=== PATIENT | male | born 1980 | race Caucasian/White ===

== ENCOUNTER 2024-09-15 14:58 | Inpatient (IN) ==
[2024-09-15 15:44] LABS: Hematocrit (blood only) 42.5 % (42.0-52.0); Hemoglobin 15.8 g/dl (14.0-18.0); Immature Granulocytes # (auto) 0.01 K/uL (0.01-0.20); Immature Granulocytes % (auto) 0.2 %; Mean Corpuscular Hemoglobin 33.3 pg (25.0-34.0); Mean Corpuscular Volume 89.5 fL (80.0-100.0); Platelet Count 202 K/uL (130-400); RDW Standard Deviation 38.9 fL (36.4-46.3); Red Blood Count 4.75 M/uL (4.70-6.10); White Blood Count 5.11 K/ul (4.8-10.8)
[2024-09-15 15:53] LABS: Appearance Urine Clear (Clear); Bacteria Urine Automated None Seen (None Seen); Cast Urine Automated 0-2 /lpf (0-2); Epithelial Cell Urine Auto 0-2 /hpf (0-2); Glucose Urine UA Negative (Negative); RBC Urine Automated 0-2 /hpf (0-2); WBC Urine Automated 0-5 /hpf (0-5)
[2024-09-15 16:01] LABS: Alanine Aminotransferase 10.0 U/L (7-52); Albumin Globulin Ratio 2.0 (0.9-2); Alkaline Phosphatase 56.0 U/L (34-104); Anion Gap 6.0 (3-11); Bilirubin,Total 0.5 mg/dl (0.2-1.0); Blood Urea Nitrogen 12.0 mg/dl (6-23); Calcium 8.9 mg/dl (8.6-10.3); Carbon Dioxide 27.0 mmol/L (21-32); Chloride 106.0 mmol/L (98-107); Creatinine Clr Calc Pharmacy 103.9 ml/min; Globulin 2.3 gm/dl (2.5-4.0); Glucose 92.0 mg/dl (70-99(Fasting)); Potassium 4.3 mmol/L (3.5-5.1); Sodium 139.0 mmol/L (136-145); Total Protein 6.8 gm/dl (6.0-8.3)
[2024-09-15 16:15] LABS: Thyroid Stimulating Hormone 0.351 uIu/ml (0.300-4.500)
[2024-09-15 16:24] LABS: Acetaminophen < 3 ug/ml (10-30); Amphetamines+Metham, Urine Neg (Neg); MDMA (Ecstacy), Urine Neg (Neg); Marijuana, Urine Pos (Neg); Salicylate < 3.0 mg/dl (3.0-30)
[2024-09-15] MEDS ORDERED: ACETAMINOPHEN 325 MG TAB PO PRN (17:45)
[2024-09-15] MEDS ORDERED: SODIUM CHLORIDE 0.65% NA SOLN 45 ML (OCEAN) PRN (17:45)
[2024-09-15] MEDS ORDERED: ALUMINUM/MAGNESIUM SUSP 30 ML UDC PO PRN (17:45)
[2024-09-15] MEDS ORDERED: BISMUTH SUBSALICYLATE 262 MG CHEW PO PRN (17:45)
[2024-09-15] MEDS ORDERED: MAGNESIUM HYDROXIDE SUSP 30 ML UDC PO PRN (17:45)
[2024-09-15] MEDS ORDERED: NICOTINE POLACRILEX 2 MG GUM MT PRN (18:30)
[2024-09-15] MEDS: MIRTAZAPINE TAB 15 MG TAB PO SCH (20:28)
[2024-09-15] MEDS: lamoTRIgine 100 MG TAB PO SCH (20:28)
[2024-09-15] MEDS: MEMANTINE HCL 10 MG TAB PO SCH (20:28)
[2024-09-15] MEDS: BENZTROPINE MESYLATE 1 MG TAB PO SCH (20:29)
--- NOTE | 2024-09-15 20:39 | Emergency Department Note ---
History of Present Illness General Chief complaint: Mental Health Evaluation Stated complaint: CRISIS EVAL, SUICIDAL THREATS Time Seen by Provider: 09/15/24 15:54 History of Present Illness Provider complaint: Mental health evaluation 43-year-old male with history of intellectual disability presents to the emergency department for mental health evaluation. Patient is here with his family who reports that the patient is becoming increasingly angry and having aggressive outbursts after his medications were changed by psychiatric team. Reportedly today the patient got very angry and started punching and kicking monsivais and started stating that he hopes he would planning to jump in front of a car to hit him. Home Medications Medication Instructions Recorded Confirmed Type aripiprazole 20 mg tablet 20 mg PO HS 09/15/24 09/15/24 History atomoxetine 100 mg capsule 100 mg PO DAILY 09/15/24 09/15/24 History benztropine 1 mg tablet 1 mg BID 09/15/24 09/15/24 History buspirone 7.5 mg tablet 7.5 mg PO BID 09/15/24 09/15/24 History clonazepam 0.5 mg tablet (Klonopin) 0.5 mg PO BID 09/15/24 09/15/24 History guanfacine 2 mg tablet 2 mg PO BID 09/15/24 09/15/24 History icosapent ethyl 1 gram capsule 1 g PO BID 09/15/24 09/15/24 History (Vascepa) lamotrigine 100 mg tablet 100 mg PO DAILY 09/15/24 09/15/24 History lamotrigine 200 mg tablet 200 mg PO BID 09/15/24 09/15/24 History memantine 10 mg tablet 10 mg PO BID 09/15/24 09/15/24 History mirtazapine 30 mg tablet 45 mg PO HS 09/15/24 09/15/24 History pantoprazole 40 mg tablet,delayed 40 mg PO DAILY 09/15/24 09/15/24 History release Allergies Allergy/AdvReac Type Severity Reaction Status Date / Time risperidone [From Risperdal] AdvReac Unknown Verified 09/15/24 18:49 Past Med/Surg History Problem List (Updated 09/15/24 @ 20:39 by Joaquim Cannon MD) Suicidal ideation (Acute) Social History Smoking Status: Current every day smoker Preferred Language: Estonian Communication Ability: Effective 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 Beliefs That Will Affect Care: None Feels Safe at Home: Yes Gender Identity: Male Assistive Devices: Glasses Physical Exam Vital Signs Vital Signs - 24 hr 09/15/24 15:04 Temperature 37.1 C Temperature Source Temporal Artery Scan Pulse Rate 100 H Respiratory Rate 19 Respiratory Effort / Characteristics Non-Labored Spontaneous Respiratory Depth Normal Blood Pressure 132/72 Blood Pressure Mean 92 Pulse Oximetry 96 Oxygen Delivery Method Room Air Sepsis Recent Fever Within 48 Hours No Sepsis New/Unexplained Change in Mental Status No Sepsis Action Taken by Nursing No Action Required Physical Exam CV: Normal rate, regular rhythm, normal heart sounds and intact distal pulses. There is no peripheral edema. Palpable radial pulses bue. PULM/CHEST: Effort normal and breath sounds normal. No respiratory distress. No stridor. He has no wheezes. He has no rales. - Chest Wall: He exhibits no tenderness. MUSC: Right upper extremity: Compartments of the upper extremity are soft. Palpable radial and ulnar pulse. Motor and sensation intact in median radial ulnar nerve distribution. No cuts or lacerations. Full range of motion of all joints of the right upper extremity. Right lower extremity: Ecchymosis over the patient's great toe. Palpable DP and PT pulse. Full range of motion of the right lower extremity. Compartments of the lower extremity are soft. PSYCH: Suicidal ideation Course Course 1554: The patient was evaluated in room A5. A complete history and physical exam was performed 1650: Patient and family refusing x-ray imaging. 1800: Patient medically cleared. Excepted to 3 S. Administered Medications Aripiprazole (Aripiprazole 10 Mg Tab) 20 mg PO [facility] Stop: 10/15/24 21:59 Last Admin: 09/15/24 20:28 Dose: 20 mg Documented By: RB Benztropine Mesylate (Benztropine Mesylate 1 Mg Tab) 1 mg PO BID [facility] Stop: 10/15/24 20:59 Last Admin: 09/15/24 20:29 Dose: 1 mg Documented By: RB Guanfacine HCl (Guanfacine Hcl 1 Mg Tab) 2 mg PO BID [facility] Stop: 10/15/24 20:59 Last Admin: 09/15/24 20:28 Dose: 2 mg Documented By: RB Lamotrigine (Lamotrigine 100 Mg Tab) 200 mg PO [facility]; Protocol Stop: 10/15/24 21:59 Last Admin: 09/15/24 20:28 Dose: 200 mg Documented By: RB Memantine (Memantine Hcl 10 Mg Tab) 10 mg PO BID [facility] Stop: 10/15/24 20:59 Last Admin: 09/15/24 20:28 Dose: 10 mg Documented By: RB Mirtazapine (Mirtazapine Tab 15 Mg Tab) 45 mg PO HS [facility] Stop: 10/15/24 21:59 Last Admin: 09/15/24 20:28 Dose: 45 mg Documented By: RB Medical Decision Making Laboratory Data Attestation: I reviewed the patient's lab results. 09/15/24 15:22 09/15/24 15:22 Lab Results 09/15/24 Range/Units 15:22 WBC 5.11 (4.8-10.8) K/ul RBC 4.75 (4.70-6.10) M/uL Hgb 15.8 (14.0-18.0) g/dl Hct 42.5 (42.0-52.0) % MCV 89.5 (80.0-100.0) fL MCH 33.3 (25.0-34.0) pg MCHC 37.2 H (32.0-36.0) g/dL RDW Std Deviation 38.9 (36.4-46.3) fL RDW Coeff of Gladis 11.9 (11.5-14.5) % Plt Count 202 (130-400) K/uL MPV 9.6 (9.4-12.4) fL Immature Gran % (Auto) 0.2 % Neut % (Auto) 64.1 % Lymph % (Auto) 27.6 % Davison % (Auto) 6.1 % Eos % (Auto) 1.4 % Baso % (Auto) 0.6 % Neut # (Auto) 3.28 (1.40-6.50) K/uL Lymph # (Auto) 1.41 (1.20-3.40) K/uL Davison # (Auto) 0.31 (0.11-0.59) K/uL Eos # (Auto) 0.07 (0.00-0.50) K/uL Baso # (Auto) 0.03 (0.00-0.20) K/uL Immature Gran # (Auto) 0.01 (0.01-0.20) K/uL Sodium 139 (136-145) mmol/L Potassium 4.3 (3.5-5.1) mmol/L Chloride 106 (98-107) mmol/L Carbon Dioxide 27 (21-32) mmol/L Anion Gap 6 (3-11) BUN 12 (6-23) mg/dl Creatinine 0.85 (0.6-1.4) mg/dl Est Cr Clr Drug Dosing 103.9 ml/min eGFR 111.95 BUN/Creatinine Ratio 14.1 (10-20) Glucose 92 (70-99(Fasting)) mg/dl Calcium 8.9 (8.6-10.3) mg/dl Total Bilirubin 0.5 (0.2-1.0) mg/dl AST 15 (13-39) U/L ALT 10 (7-52) U/L Alkaline Phosphatase 56 (34-104) U/L Total Protein 6.8 (6.0-8.3) gm/dl Albumin 4.5 (3.4-5.0) gm/dl Globulin 2.3 L (2.5-4.0) gm/dl Albumin/Globulin Ratio 2.0 (0.9-2) TSH 0.351 (0.300-4.500) uIu/ml Urine Color Yellow Urine Appearance Clear (Clear) Urine pH 7.0 (4.5-7.5) Ur Specific [place] 1.015 (1.000-1.030) Urine Protein Negative (Negative) Urine Glucose (UA) Negative (Negative) Urine Ketones Trace H (Negative) Urine Blood Negative (Negative) Urine Nitrite Negative (Negative) Urine Bilirubin Negative (Negative) Urine Urobilinogen Positive H (Negative) Ur Leukocyte Esterase Trace H (Negative) Urine WBC (Auto) 0-5 (0-5) /hpf Urine RBC (Auto) 0-2 (0-2) /hpf U Hyaline Cast (Auto) 0-2 (0-2) /lpf U Epithel Cells (Auto) 0-2 (0-2) /hpf Urine Bacteria (Auto) None Seen (None Seen) Urine Comment Salicylates < 3.0 L (3.0-30) mg/dl Urine Opiates Screen Neg (Neg) Ur Methadone, Qual Neg (Neg) Urine Fentanyl Screen Neg (Neg) Acetaminophen < 3 L (10-30) ug/ml Urine Barbiturates Neg (Neg) Ur Phencyclidine (PCP) Neg (Neg) U Amphetamin/Meth Scrn Neg (Neg) MDMA (Ecstasy) Screen Neg (Neg) U Benzodiazepines Scrn Neg (Neg) Ur Cocaine Metabolite Neg (Neg) U Marijuana (THC) Screen Pos H (Neg) Ethyl Alcohol mg/dL < 10.0 (<10.0) mg/dl SARS-CoV-2, RNA, NAAT NEGATIVE (NEGATIVE) MDM Narrative 1554: The patient was evaluated in room A5. A complete history and physical exam was performed 1650: Patient and family refusing x-ray imaging. 1800: Patient medically cleared. Excepted to 3 S. Impression & Plan Suicidal ideation Discharge Plan Visit Data Chief Complaint: Mental Health Evaluation Stated Complaint: CRISIS EVAL, SUICIDAL THREATS ED Provider: Joaquim Cannon Discharge Problem: Suicidal ideation Patient Disposition: Admitted As Inpatient Condition: Fair Discharge Instructions Interventions: ED Discharge Assessment Last Done: 09/15/24 18:10
[2024-09-16] MEDS: lamoTRIgine 100 MG TAB PO SCH (07:38)
[2024-09-16] MEDS: ATOMOXETINE HCL 40 MG CAPSULE PO SCH (07:39)
[2024-09-16] MEDS: ATOMOXETINE HCL 10 MG CAPSULE PO SCH (07:39)
[2024-09-16] MEDS ORDERED: ATOMOXETINE HCL 25 MG CAPSULE PO SCH (09:00)
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
[2024-09-17 07:46] LABS: Cholesterol 184.0 mg/dl (0-200); HDL Cholesterol 50.0 mg/dl; Triglycerides 137.0 mg/dl (0-150)
[2024-09-17 09:11] LABS: Hemoglobin A1C 4.9 % (4.5-5.6)
--- NOTE | 2024-09-17 14:28 | Psychiatric Progress Note ---
Date of Service September 17, 2024 Impression / Recommendations Impression PARIS MORALES is a 43-year-old M who currently lives with family, has a history of ASD, ADHD, depression, anxiety, and was admitted on 09/15/24 17:45 on a 201 voluntary commitment for aggressive outbursts and anger. Presentation concerning for intermittent explosive disorder given recurrent outbursts with poor control and subsequent remorse. Recent inc in frequency and intensity after recent outpatient medication changes. Episodes have involved property damage. Concern for increased disinhibition with clonazepam and was held. Does not appear to be in a major depressive episode and sadness appears to be transient and in relation to loneliness. Family concern for defiant behaviors at home. H/o transient SI threats when in distress; no past attempt. Medication history reviewed with patient and parents. Concern for some medication non- adherence and may benefit from BROWN antipsychotic. A: Patient is tolerating discontinuation of benztropine and recently initiated psychiatric medications. Today we will initiate serotonin antidepressant at low dose and reduce atomoxetine dose due to fluoxetine's CYP2D6 inhibition. 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 (1) Depression: (2) Suicidal ideation: (3) Disinhibition behavior: (4) Difficulty controlling anger: (5) Intermittent explosive disorder: (6) Autism spectrum disorder: Plan 09/17/2024: Start fluoxetine 10 mg daily. Decrease atomoxetine to 80 mg daily. 09/16/24:The patient was admitted to the [facility] ([facility] mental health unit) on q15 min checks (behavioral with suicide precautions) for safety. The patient will participate in group, recreational, and milieu therapies and will be offered additional individual and family sessions as clinically appropriate. Held home Clonazepam, Buspirone Discontinue Benztropine today Restart home Lamotrigine, Mirtazapine, Benztropine, Guanfacine, Aripiprazole, Memantine, Atomoxetine Labs: Vit D, Vit B12, A1C, fasting lipids Inventory Assets Strengths: social supports, well connected Needs: impulse control, relationships Suicide Risk Level Suicide Risk Level: Low (q15 min observation checks) Risk Factors Assessment Male: Yes : Yes Do You Have Access To A Gun?: No Health Problems: No Mental Health Diagnoses: Yes Substance Use Disorders: No Previous Attempt: No Family History of Suicide: No Previous Psychiatric Hospitalization: Yes Hopelessness: No Protective Factors Assessment Yazidi Beliefs: No : No Responsible for Young Children: No Employed: Yes ([employer] x10 years) Stable Relationships: Yes Supportive Family: Yes Good Rapport with Provider: Yes Absence of Any Risk Factors Above: No Interval History Identifying Information PARIS MORALES is a 43-year-old M who currently lives with family, has a history of ASD, ADHD, depression, anxiety, and was admitted on 09/15/24 17:45 on a 201 voluntary commitment for aggressive outbursts and anger. Chief Complaint Anger outbursts Review of Systems Sleep Information Total Hours of Sleep: 7.75 Meal Information Percent Meal Consumed - Breakfast: 100 Percent Meal Consumed - Lunch: 100 Percent Meal Consumed - Dinner: 100 Subjective Subjective Patient was seen & assessed and interval progress reviewed with treatment team nursing and social work Patient slept well. No problematic behaviors overnight. He feels rested. Is in a pleasant mood and interactive with staff. He denies any onset of anger, impulsivity, or fear of loss of control. Does not notice a difference being off benztropine. Denies SI. Physical Exam Mental Examination Appearance: Unkempt Eye Contact: Fleeting Contact Motor Behavior: Tics, Restless and Wringing Hands Speech: Normal Mood: Calm Affect: Calm and Happy Thought Process: Intact Thought Content: Intact Hallucinations: None Insight: Fair Judgement: Fair Vital Signs (Past 24 Hours) Last Vital Signs Temp 36.4 C 09/17/24 06:26 Pulse 87 09/17/24 06:27 Resp 17 09/17/24 06:26 BP 112/80 09/17/24 06:27 Pulse Ox 98 09/17/24 06:26 O2 Del Method Room Air 09/17/24 06:26 Results & Data ([facility]) Laboratory Results Laboratory Results - last 24 hr 09/17/24 07:07 Estimat Average Glucose 94 Hemoglobin A1c 4.9 Triglycerides 137 Cholesterol 184 LDL Cholesterol, Calc 107 VLDL Cholesterol, Calc 27 HDL Cholesterol 50 Cholesterol/HDL Ratio 3.7 Vitamin B12 264 25-OH Vitamin D Total 38.0 Current Inpatient Medications Current Inpatient Medications: Current Inpatient Medications Acetaminophen (Acetaminophen 325 Mg Tab) 650 mg PO Q4H PRN PRN Reason: Headache or Minor Fever Stop: 10/15/24 17:44 Al Hydrox/Mg Hydrox/Simethicone (Aluminum/Magnesium Susp 30 Ml Udc) 30 ml PO Q4H PRN PRN Reason: GI Upset Stop: 10/15/24 17:44 Aripiprazole (Aripiprazole 10 Mg Tab) 20 mg PO [facility] Stop: 10/15/24 21:59 Last Admin: 09/16/24 20:17 Dose: 20 mg Atomoxetine HCl (Atomoxetine Hcl 40 Mg Capsule) [facility] Stop: 10/16/24 08:59 Last Admin: 09/17/24 09:02 Dose: 80 mg Bismuth Subsalicylate (Bismuth Subsalicylate 262 Mg Chew) 2 tab PO Q30M PRN PRN Reason: Loose Stool/Diarrhea Stop: 10/15/24 17:44 Fluoxetine HCl (Fluoxetine Hcl 10 Mg Cap) [facility] Stop: 10/17/24 11:29 Guanfacine HCl (Guanfacine Hcl 1 Mg Tab) 2 mg PO BID [facility] Stop: 10/15/24 20:59 Last Admin: 09/17/24 09:02 Dose: 2 mg Hydroxyzine HCl (Hydroxyzine Hcl 25 Mg Tab) 50 mg PO HSZ PRN PRN Reason: Insomnia Stop: 10/15/24 17:44 Hydroxyzine HCl (Hydroxyzine Hcl 25 Mg Tab) 25 mg PO Q4H PRN PRN Reason: Anxiety Stop: 10/15/24 17:44 Lamotrigine (Lamotrigine 100 Mg Tab) [facility]; Protocol Stop: 10/16/24 08:59 Last Admin: 09/17/24 09:02 Dose: 300 mg Lamotrigine (Lamotrigine 100 Mg Tab) 200 mg PO [facility]; Protocol Stop: 10/15/24 21:59 Last Admin: 09/16/24 20:17 Dose: 200 mg Magnesium Hydroxide (Magnesium Hydroxide Susp 30 Ml Udc) 30 ml PO DAILY PRN PRN Reason: Constipation Stop: 10/15/24 17:44 Memantine (Memantine Hcl 10 Mg Tab) 10 mg PO BID [facility] Stop: 10/15/24 20:59 Last Admin: 09/17/24 09:02 Dose: 10 mg Mirtazapine (Mirtazapine Tab 15 Mg Tab) 45 mg PO HS [facility] Stop: 10/15/24 21:59 Last Admin: 09/16/24 20:15 Dose: 45 mg Nicotine Polacrilex (Nicotine Polacrilex 2 Mg Gum) 2 piece MT PRN PRN PRN Reason: Nicotine Withdrawal Symptoms Stop: 10/15/24 18:29 Olanzapine (Olanzapine 5 Mg Tablet) 5 mg PO Q6 PRN PRN Reason: Agitation Stop: 10/16/24 00:00 Sodium Chloride (Sodium Chloride 0.65% Na Soln 45 Ml ([place])) 1 - 2 sprays NA PRN PRN PRN Reason: Nasal Dryness/Congestion Stop: 10/15/24 17:44 Mental Health & Subst Abuse Tx Psychiatrist [facility] Release of Information: Obtained Therapist Name of Therapist: Laverne vinson [facility] Therapist's Therapist Release of Information: Obtained Wood Crew Supervisor Name of Wood Crew Supervisor: Reinier Cerbral Palsy/Mesha - Spanish Instructor Phone Number for Wood Crew Supervisor: [phone] Wood Crew Supervisor Release of Information: Obtained Post Discharge Appointments Primary Care Physician Name Of Family Doctor/PCP: Dr Prashant Mahoney Primary Care Provider Appointment Comment: follow up as needed Primary Care Release of Information: Obtained Specialist Name of Specialist: LATOYA ([facility]) Phone Number for Specialist: [phone] Specialist Release of Information: Obtained
--- NOTE | 2024-09-18 12:56 | Psychiatric Progress Note ---
Date of Service September 18, 2024 Impression / Recommendations Impression PARIS MORALES is a 43-year-old M who currently lives with family, has a history of ASD, ADHD, depression, anxiety, and was admitted on 09/15/24 17:45 on a 201 voluntary commitment for aggressive outbursts and anger. Presentation concerning for intermittent explosive disorder given recurrent outbursts with poor control and subsequent remorse. Recent inc in frequency and intensity after recent outpatient medication changes. Episodes have involved property damage. Concern for increased disinhibition with clonazepam and was held. Does not appear to be in a major depressive episode and sadness appears to be transient and in relation to loneliness. Family concern for defiant behaviors at home. H/o transient SI threats when in distress; no past attempt. Medication history reviewed with patient and parents. Concern for some medication non- adherence and may benefit from BROWN antipsychotic. A: Patient is presenting stable behaviors on the unit. We discussed triggers for outbursts including criticism and judgment and strategies to cope. No outbursts on the unit. Has been tolerating initiation of fluoxetine well. Plan to decrease nightly mirtazapine dose. 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 (1) Depression: (2) Suicidal ideation: (3) Disinhibition behavior: (4) Difficulty controlling anger: (5) Intermittent explosive disorder: (6) Autism spectrum disorder: Plan 09/18/2024: Decrease mirtazapine to 30 mg at bedtime 09/17/24: Start Fluoxetine 10mg daily, decrease atomoxetine to 60mg daily 09/16/24:The patient was admitted to the [facility] ([facility] inpatient mental health unit) on q15 min checks (behavioral with suicide precautions) for safety. The patient will participate in group, recreational, and milieu therapies and will be offered additional individual and family sessions as clinically appropriate. Held home Clonazepam, Buspirone Discontinue Benztropine today Restart home Lamotrigine, Mirtazapine, Benztropine, Guanfacine, Aripiprazole, Memantine, Atomoxetine Labs: Vit D, Vit B12, A1C, fasting lipids Inventory Assets Strengths: social supports, well connected Needs: impulse control, relationships Suicide Risk Level Suicide Risk Level: Low (q15 min observation checks) Risk Factors Assessment Male: Yes : Yes Do You Have Access To A Gun?: No Health Problems: No Mental Health Diagnoses: Yes Substance Use Disorders: No Previous Attempt: No Family History of Suicide: No Previous Psychiatric Hospitalization: Yes Hopelessness: No Protective Factors Assessment Buddhist Beliefs: No : No Responsible for Young Children: No Employed: Yes ([employer] x10 years) Stable Relationships: Yes Supportive Family: Yes Good Rapport with Provider: Yes Absence of Any Risk Factors Above: No Interval History Identifying Information PARIS MORALES is a 43-year-old M who currently lives with family, has a history of ASD, ADHD, depression, anxiety, and was admitted on 09/15/24 17:45 on a 201 voluntary commitment for aggressive outbursts and anger. Chief Complaint Anger outbursts Review of Systems Sleep Information Total Hours of Sleep: 6.75 Meal Information Percent Meal Consumed - Breakfast: 100 Percent Meal Consumed - Lunch: 100 Percent Meal Consumed - Dinner: 100 Subjective Subjective Patient was seen & assessed and interval progress reviewed with treatment team nursing and social work Slept 6.25 hours. Reports tolerating fluoxetine well with no GI side effects or headache. Feels rested. We discussed triggers for his past outburst and he reports he can happen when he feels criticized or judged takes at the wrong way. We discussed strategies on how to cope with those moments. Updated about medication plan and agreeable. Physical Exam Mental Examination Appearance: Unkempt Eye Contact: Fleeting Contact Motor Behavior: Tics, Restless and Wringing Hands Speech: Normal Mood: Calm Affect: Calm and Happy Thought Process: Intact Thought Content: Intact Hallucinations: None Insight: Fair Judgement: Fair Vital Signs (Past 24 Hours) Last Vital Signs Temp 36.5 C 09/18/24 05:39 Pulse 86 09/18/24 05:41 Resp 17 09/18/24 05:39 BP 120/80 09/18/24 05:41 Pulse Ox 96 09/18/24 05:39 O2 Del Method Room Air 09/18/24 05:39 Results & Data ([facility]) Current Inpatient Medications Current Inpatient Medications: Current Inpatient Medications Acetaminophen (Acetaminophen 325 Mg Tab) 650 mg PO Q4H PRN PRN Reason: Headache or Minor Fever Stop: 10/15/24 17:44 Al Hydrox/Mg Hydrox/Simethicone (Aluminum/Magnesium Susp 30 Ml Udc) 30 ml PO Q4H PRN PRN Reason: GI Upset Stop: 10/15/24 17:44 Aripiprazole (Aripiprazole 10 Mg Tab) 20 mg PO [facility] Stop: 10/15/24 21:59 Last Admin: 09/17/24 20:41 Dose: 20 mg Atomoxetine HCl (Atomoxetine Hcl 40 Mg Capsule) [facility] Stop: 10/16/24 08:59 Last Admin: 09/18/24 08:54 Dose: 80 mg Bismuth Subsalicylate (Bismuth Subsalicylate 262 Mg Chew) 2 tab PO Q30M PRN PRN Reason: Loose Stool/Diarrhea Stop: 10/15/24 17:44 Fluoxetine HCl (Fluoxetine Hcl 10 Mg Cap) [facility] Stop: 10/17/24 11:29 Last Admin: 09/18/24 08:54 Dose: 10 mg Guanfacine HCl (Guanfacine Hcl 1 Mg Tab) 2 mg PO BID [facility] Stop: 10/15/24 20:59 Last Admin: 09/18/24 08:54 Dose: 2 mg Hydroxyzine HCl (Hydroxyzine Hcl 25 Mg Tab) 50 mg PO HSZ PRN PRN Reason: Insomnia Stop: 10/15/24 17:44 Hydroxyzine HCl (Hydroxyzine Hcl 25 Mg Tab) 25 mg PO Q4H PRN PRN Reason: Anxiety Stop: 10/15/24 17:44 Lamotrigine (Lamotrigine 100 Mg Tab) [facility]; Protocol Stop: 10/16/24 08:59 Last Admin: 09/17/24 20:42 Dose: 300 mg Lamotrigine (Lamotrigine 100 Mg Tab) 200 mg PO [facility]; Protocol Stop: 10/15/24 21:59 Last Admin: 09/17/24 20:44 Dose: 200 mg Magnesium Hydroxide (Magnesium Hydroxide Susp 30 Ml Udc) 30 ml PO DAILY PRN PRN Reason: Constipation Stop: 10/15/24 17:44 Memantine (Memantine Hcl 10 Mg Tab) 10 mg PO BID [facility] Stop: 10/15/24 20:59 Last Admin: 09/18/24 08:54 Dose: 10 mg Mirtazapine (Mirtazapine Tab 15 Mg Tab) 30 mg PO HS [facility] Stop: 10/18/24 21:59 Nicotine Polacrilex (Nicotine Polacrilex 2 Mg Gum) 2 piece MT PRN PRN PRN Reason: Nicotine Withdrawal Symptoms Stop: 10/15/24 18:29 Olanzapine (Olanzapine 5 Mg Tablet) 5 mg PO Q6 PRN PRN Reason: Agitation Stop: 10/16/24 00:00 Sodium Chloride (Sodium Chloride 0.65% Na Soln 45 Ml ([place])) 1 - 2 sprays NA PRN PRN PRN Reason: Nasal Dryness/Congestion Stop: 10/15/24 17:44 Mental Health & Subst Abuse Tx Psychiatrist Name of Psychiatrist: [facility] Psychiatrist's Psychiatrist Release of Information: Obtained Therapist Name of Therapist: [facility]inson [facility] Therap[facility] Release of Information: Obtained Insurance Underwriter Name of Insurance Underwriter: Genetency Cerbral Palsy/Mesha - Neurosurgeon Phone Number for Insurance Underwriter: [phone] Insurance Underwriter Release of Information: Obtained Post Discharge Appointments Primary Care Physician Name Of Family Doctor/PCP: Dr Prashant Mahoney Primary Care Provider Appointment Comment: follow up as needed Primary Care Release of Information: Obtained Specialist Name of Specialist: LATOYA ([facility]) Phone Number for Specialist: [phone] Specialist Release of Information: Obtained
[2024-09-18] MEDS: MIRTAZAPINE TAB 15 MG TAB PO SCH (21:13)
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
[2024-09-19 14:27] LABS: Marijuana Quant, GCMS Urine 80 ng/mL (<5)
== END 2024-09-19 13:10 | disposition home or self-care (01) | DRG 883 ==
LOC: ED 14:58 → 3S 17:45